=== PATIENT | female | born 1950 | race American Indian/Alaskan Native ===

== ENCOUNTER 2021-11-08 09:20 | Inpatient (IN) | payer MEDICARE ==
[2021-11-08] MEDS ORDERED: SODIUM CHLORIDE 0.9% 500 ML 500 ML IV ONE (09:24)
[2021-11-08] MEDS ORDERED: NITROGLYCERIN 2% OINT 1 GM TP NR (09:24)
[2021-11-08] MEDS ORDERED: ONDANSETRON 4 MG/2 ML INJ IV NR (09:26)
[2021-11-08] MEDS ORDERED: MORPHINE 4 MG/1 ML INJ IV NR (09:26)
--- NOTE | 2021-11-08 10:58 | XRay Report ---
CHEST 1 VIEW 11/08/2021 8:52 AM INDICATION / CLINICAL INFORMATION: Chest Pain. COMPARISON: None available. FINDINGS: SUPPORT DEVICES: Left dual-lead pacemaker with right leads. HEART / MEDIASTINUM: No significant abnormality. LUNGS / PLEURA: No significant pulmonary or pleural abnormality. No pneumothorax. ADDITIONAL FINDINGS: No significant additional findings. IMPRESSION: 1. No acute findings. Signer Name: Hai Son MD Signed: 11/08/2021 10:54 AM Workstation Name: [email or web address]
[2021-11-08 11:23] LABS: C-Reactive Protein 0.3 mg/dL (0.00-1.30)
[2021-11-08 11:24] LABS: Alanine Aminotransferase 11 units/L (7-56); Albumin 3.9 g/dL (3.9-5); BUN/Creatinine Ratio 19; Blood Urea Nitrogen 19 mg/dL (7-17); Hemolysis Index 2
[2021-11-08 11:28] LABS: Hematocrit 34.3 % (30.3-42.9); Hemoglobin 11.5 gm/dl (10.1-14.3); Mean Corpuscular HGB Conc 34 % (30-34); Mean Corpuscular Volume 94 fl (79-97); Platelet Count 233 K/mm3 (140-440); Red Blood Count 3.64 M/mm3 (3.65-5.03); Red Cell Distribution Width 14.4 % (13.2-15.2)
[2021-11-08 12:25] LABS: Platelet Estimate Consistent w Auto; RBC Morphology Normal; Total Cells Counted 100
[2021-11-08 13:48] LABS: Color,Urine Yellow (Yellow)
[2021-11-08 13:49] LABS: Hyaline Casts,Urine 1 /LPF; Mucus,Urine FEW /HPF
[2021-11-08 14:08] LABS: Amphetamine Screen,Urine Negative; Benzodiazepines Screen,Urine Negative; Cannabinoid Screen,Urine Negative; Cocaine Screen,Urine Negative; Methadone Screen,Urine Negative; Opiate Screen,Urine Negative
--- NOTE | 2021-11-08 14:21 | Emergency Department Report ---
ED Chest Pain HPI - General Chief Complaint: Chest Pain Stated Complaint: CHEST PAIN PUI?: No Time Seen by Provider: 11/08/21 09:24 Source: patient, EMS Mode of arrival: Stretcher Limitations: No Limitations - History of Present Illness Initial Comments: Pt presents with substernal CP that began this AM when she woke up -: hour(s) Onset: during rest Pain Location: substernal Pain Radiation: none Severity scale (0 -10): 7 Quality: heaviness Consistency: intermittent Improves With: nitroglycerin Worsens With: nothing Treatments Prior to Arrival: none - Related Data On Oral Contraceptives: No Allergies Allergy/AdvReac Type Severity Reaction Status Date / Time aspirin Allergy Unknown Verified 11/08/21 09:34 lisinopril Allergy Angioedema Verified 11/08/21 09:34 Heart Score - HEART Score History: Highly suspicious EKG: Non-specific Age: > 65 Risk factors: 1-2 risk factors Troponin: < normal limit HEART Score: 6 - EKG Read Time Time EKG Completed: 09:30 EKG Read Time: 09:30 - Critical Actions Critical Actions: 4-6 pts:12-16.6% risk of adverse cardiac event. Should be admitted ED Review of Systems ROS: Stated complaint: CHEST PAIN Other details as noted in HPI ED Past Medical Hx - Past Medical History Hx Diabetes: Yes (borderline) - Surgical History Hx Pacemaker: Yes - Social History Smoking Status: Never Smoker ED Physical Exam - General Limitations: No Limitations ED Course Vital Signs 11/08/21 11/08/21 11/08/21 09:21 09:25 09:31 Temperature 98.3 F Pulse Rate 60 Respiratory 18 16 24 Rate Blood Pressure 152/75 Blood Pressure 152/75 [Right] O2 Sat by Pulse 100 98 Oximetry 11/08/21 11/08/21 11/08/21 09:45 10:01 10:15 Temperature Pulse Rate 61 65 60 Respiratory 16 16 19 Rate Blood Pressure 144/87 144/87 137/77 Blood Pressure [Right] O2 Sat by Pulse 99 97 100 Oximetry 11/08/21 11/08/21 11/08/21 10:31 10:45 11:01 Temperature Pulse Rate 76 60 65 Respiratory 24 16 22 Rate Blood Pressure 137/77 147/74 147/74 Blood Pressure [Right] O2 Sat by Pulse 98 97 76 L Oximetry 11/08/21 11/08/2111/08/22 11:15 11:31 11:45 Temperature Pulse Rate 65 62 61 Respiratory 16 14 12 Rate Blood Pressure 136/77 136/77 128/86 Blood Pressure [Right] O2 Sat by Pulse 99 99 95 Oximetry 11/08/21 11/08/21 11/08/21 12:00 12:15 12:31 Temperature Pulse Rate 65 60 68 Respiratory 14 15 15 Rate Blood Pressure 136/77 121/85 128/86 Blood Pressure [Right] O2 Sat by Pulse 98 96 94 Oximetry 11/08/21 11/08/21 12:45 13:01 Temperature Pulse Rate 61 60 Respiratory 12 22 Rate Blood Pressure 115/82 115/82 Blood Pressure [Right] O2 Sat by Pulse 97 91 Oximetry ARRON score - Arron Score Age > 65: (1) Yes Aspirin use within the Past 7 Days: (0) No 3 or more CAD Risk Factors: (0) No 2 or more Angina events in past 24 hrs: (0) No Known CAD with more than 50% Stenosis: (0) No Elevated Cardiac Markers: (0) No ST Deviation Greater than 0.5mm: (0) No ARRON Score: 1 ED Medical Decision Making - Lab Data Result diagrams: 11/08/21 09:55 11/08/21 09:55 - EKG Data -: EKG Interpreted by Pr EKG shows normal: sinus rhythm - Radiology Data Radiology results: report reviewed, image reviewed - Medical Decision Making work up negatve pain resolved with nitro and morphine , Critical care attestation.: If time is entered above; I have spent that time in minutes in the direct care of this critically ill patient, excluding procedure time. ED Disposition Clinical Impression: Chest pain Disposition: ADMITTED INPATIENT Is pt being admited?: Yes Does the pt Need Aspirin: Yes Condition: Stable Instructions: Nonspecific Chest Pain, Adult Referrals: PRIMARY CARE,MD [Primary Care Provider] - 3-5 Days
--- NOTE | 2021-11-08 14:23 | History and Physical Report ---
History of Present Illness Chief complaint: My chest hurts History of present illness: 70 YO Female with Obesity, HTN, DM, Metabolic Syndrome, Cardiomyopathy S/P Pacemaker Placement presents to ED for evaluation. Patient reports "my chest hurts". Patient states that she experienced sudden onset of chest pain this mo rning shortly after awakening from sleep. Patient states that pain is 7/10, intermittent, substernal, crushing in nature, worsened with deep breathing, not worsened with exertion, not relieved with rest. Patient acknowledges decreased activity over the past 1 week. EMS was notified and upon arrival the patient was found to be in distress and subsequently transported to [facility] for further care and evaluation of the aforementioned symptoms. The patient was seen and evaluated emergency department. All lab and imaging studies reviewed. Patient found to have angina at rest as well as clinical symptoms consistent with diastolic CHF, and pleuritic chest pain. Patient also found to have elevated D-dimer. Patient admitted to telemetry and initiated on CHF protocol. Patient treated with initial dose of therapeutic anticoagulation. CTA chest ordered and pending. Cardiology team consulted. Patient denies fever, chills, productive cough, skin rash, recent contact, known exposure to COVID-19. No prior admission for review. All medication listed at time of admission has been reconciled. Advanced care planning conducted in ED. Past History Past Medical History: diabetes, hypertension, other (See HPI) Past Surgical History: Other (Pacemaker placement) Social history: single. denies: smoking, alcohol abuse, prescription drug abuse Family history: diabetes, hypertension Medications and Allergies Allergies Allergy/AdvReac Type Severity Reaction Status Date / Time aspirin Allergy Unknown Verified 11/08/21 09:34 lisinopril Allergy Angioedema Verified 11/08/21 09:34 Review of Systems Constitutional: no weight loss, no weight gain Ears, nose, mouth and throat: no ear discharge, no tinnitis, no decreased hearing, no nasal discharge Cardiovascular: decreased exercise tolerance, no chest pain Respiratory: pleurisy, no cough, no cough with sputum Gastrointestinal: no abdominal pain, no nausea, no constipation Genitourinary Female: no pelvic pain, no flank pain, no dysuria, no urinary frequency Rectal: no pain, no incontinence, no bleeding Musculoskeletal: no neck stiffness, no neck pain, no shooting arm pain, no arm numbness/tingling, no low back pain Integumentary: no rash, no pruritis, no redness, no sores Neurological: no head injury, no transient paralysis, no weakness, no tingling, no syncope, no tremors, no lack of coordination Psychiatric: no anxiety, no memory loss, no sleep disturbances, no hypersomnia, no change in libido, no suicidal ideation Endocrine: no cold intolerance, no polyphagia, no excessive thirst, no nocturia, no excessive sweating Hematologic/Lymphatic: no easy bruising Allergic/Immunologic: no urticaria, no allergic rhinitis, no wheezing Exam - Constitutional Vitals: Temp Pulse Resp BP Pulse Ox 98.3 F 60 22 115/82 91 11/08/21 09:21 11/08/21 13:01 11/08/21 13:01 11/08/21 13:01 11/08/21 13:01 General appearance: Present: mild distress, obese - EENT Eyes: Present: PERRL ENT: hearing intact, clear oral mucosa - Neck Neck: Present: supple, normal ROM - Respiratory Respiratory effort: normal Respiratory: bilateral: diminished - Cardiovascular Heart Sounds: Present: S1 & S2. Absent: rub, click - Extremities Extremities: pulses symmetrical, No edema Peripheral Pulses: within normal limits - Abdominal General gastrointestinal: Present: soft, non-tender, non-distended, normal bowel sounds Female genitourinary: Present: normal - Integumentary Integumentary: Present: clear, warm, dry - Musculoskeletal Musculoskeletal: gait normal, strength equal bilaterally - Psychiatric Psychiatric: appropriate mood/affect, intact judgment & insight - Neurologic Neurologic: CNII-XII intact, moves all extremities HEART Score - HEART Score EKG: Non-specific Age: > 65 Risk factors: 1-2 risk factors Troponin: Troponin T < 0.010 ng/mL (0.00-0.029) 11/08/21 13:16 Troponin: < normal limit Results - Labs CBC & Chem 7: 11/08/21 09:55 11/08/21 09:55 Labs: Abnormal lab results 11/08/21 11/08/21 Range/Units 09:55 09:55 WBC 4.3 L (4.5-11.0) K/mm3 RBC 3.64 L (3.65-5.03) M/mm3 Seg Neuts % (Manual) 37.0 L (40.0-70.0) % Lymphocytes % (Manual) 42.0 H (13.4-35.0) % Monocytes % (Manual) 8.0 H (0.0-7.3) % Basophils % (Manual) 2.0 H (0.0-1.8) % Seg Neutrophils # Man 1.6 L (1.8-7.7) K/mm3 BUN 19 H (7-17) mg/dL Assessment and Plan - Patient Problems (1) Angina at rest Current Visit: Yes Status: Acute Plan to address problem: ACS protocol: Serial cardiac enzymes, EKG, telemetry monitoring, morphine, supplemental oxygen, nitro, aspirin, cardiology team consulted. (2) Diastolic CHF Current Visit: Yes Status: Acute Qualifiers: Heart failure chronicity: acute Qualified Code(s): I50.31 - Acute diastolic (congestive) heart failure Plan to address problem: Strict I/O, monitor urine output every shift, daily, afterload reduction, blood pressure control, echocardiogram ordered and pending at time of admission. (3) Hypertension Current Visit: Yes Status: Acute Qualifiers: Hypertension type: primary hypertension Qualified Code(s): I10 - Essential (primary) hypertension Plan to address problem: Monitor blood pressure every shift, continue medical management. (4) Diabetes Current Visit: Yes Status: Acute Plan to address problem: Consistent carbohydrate diet, Accu-Chek, insulin protocol, hypoglycemia protocol (5) Metabolic syndrome Current Visit: Yes Status: Acute Plan to address problem: Risk factor reduction, low-cholesterol diet, hyperglycemic control. (6) Obesity (BMI 30.0-34.9) Current Visit: Yes Status: Acute Plan to address problem: Balanced diet, increase physical activity discharge (7) DVT prophylaxis Current Visit: Yes Status: Acute Plan to address problem: SCD to bilateral lower extremities while in bed (8) Advance care planning Current Visit: Yes Status: Acute Plan to address problem: Disease education conducted, care plan discussed, diagnoses discussed, prognosis discussed, patient is full code. Patient knowledges understanding and agreement care plan, +30 minutes. (9) Preventative health care Current Visit: Yes Status: Acute Plan to address problem: Patient counseled regarding risk factor reduction, home safety precautions, low- cholesterol diet, outpatient follow-up with primary care physician for all age and risk factor appropriate screening test.
[2021-11-08] MEDS ORDERED: NITROGLYCERIN 0.4 MG TAB SUBL SL PRN (14:25)
[2021-11-08] MEDS ORDERED: oxyCODONE /ACETAMINOPHEN 5-325MG TAB PO PRN (14:25)
[2021-11-08] MEDS ORDERED: ACETAMINOPHEN 325 MG TAB PO PRN (14:25)
[2021-11-08] MEDS ORDERED: MORPHINE 4 MG/1 ML INJ IV PRN (14:25)
[2021-11-08] MEDS ORDERED: ALBUTEROL 2.5 MG/3 ML NEBU IH PRN (14:25)
[2021-11-08] MEDS ORDERED: ONDANSETRON 4 MG/2 ML INJ IV PRN (14:25)
[2021-11-08 16:55] LABS: Free T4 (Free Thyroxine) 0.95 ng/dL (0.76-1.46)
[2021-11-08] MEDS: ENOXAPARIN 100 MG/1 ML INJ SUB-Q SCH (21:46)
[2021-11-08] MEDS: FAMOTIDINE 10 MG TAB PO SCH (21:47)
--- NOTE | 2021-11-09 04:18 | Cat Scan Report ---
CTA CHEST WITH IV CONTRAST INDICATION / CLINICAL INFORMATION: dypsnea. TECHNIQUE: Axial CT images were obtained through the chest after injection of 100 mL Omnipaque 350 IV contrast. 3 plane MIP and/or 3D reconstructions were produced. All CT scans at this location are performed usi CT dose reduction for ALARA by means of automated exposure control. COMPARISON: Chest radiograph 11/08/2021 FINDINGS: PULMONARY ARTERIES: No pulmonary emboli. THORACIC AORTA: No significant abnormality. HEART: No significant abnormality. CORONARY ARTERIES: No significant calcification. PLEURA: No pleural effusion. No pneumothorax. LYMPH NODES: No significant adenopathy. LUNGS: Probable mild interstitial pulmonary edema. The lungs are otherwise grossly clear. No pleural effusion or focal consolidation. ADDITIONAL FINDINGS: None. UPPER ABDOMEN: No acute findings. SKELETAL STRUCTURES: No significant acute osseous abnormality. IMPRESSION: 1. No CT evidence for pulmonary embolism. 2. Probable mild interstitial pulmonary edema. Signer Name: Carrol Denis MD Signed: 11/09/2021 4:13 AM Workstation Name: [id number]
[2021-11-09 06:39] LABS: Calcium 8.5 mg/dL (8.4-10.2)
--- NOTE | 2021-11-09 08:24 | Progress Note ---
Assessment and Plan Assessment and plan: 70 YO Female with Obesity, HTN, DM, Metabolic Syndrome, Cardiomyopathy S/P Pacemaker Placement presents to ED for evaluation of chest pain. The patient was admitted with diagnosis below: Chest pain Acute diastolic heart failure Hypertension Diabetes mellitus type 2 Obesity 11/09/2021. Patient may have very mild acute diastolic heart failure with CTA revealing mild interstitial pulmonary edema. However, chest x-ray and BNP negative. Await cardiology consultation and recommendations for ischemic evaluation. Patient reports having outpatient stress test approximately 1 month ago with [facility] does not know the results. Follow-up echocardiogram. Patient with elevated D-dimer but CTA was negative for PE. Patient currently normotensive. Continue Accu-Cheks and sliding scale insulin. History Interval history: No new issues overnight Hospitalist Physical - Constitutional Vitals: Temp Pulse Resp BP Pulse Ox 97.6 F 59 L 18 127/61 95 11/09/21 03:55 11/09/21 03:55 11/09/21 03:55 11/09/21 03:55 11/09/21 03:55 General appearance: Present: no acute distress, obese - EENT Eyes: Present: PERRL, EOM intact ENT: hearing intact, clear oral mucosa, dentition normal - Neck Neck: Present: supple, normal ROM - Respiratory Respiratory effort: normal Respiratory: bilateral: CTA - Cardiovascular Rhythm: regular Heart Sounds: Present: S1 & S2. Absent: gallop, rub - Extremities Extremities: no ischemia, No edema, Full ROM - Abdominal General gastrointestinal: soft, non-tender, non-distended, normal bowel sounds - Integumentary Integumentary: Present: clear, warm, dry - Neurologic Neurologic: CNII-XII intact, moves all extremities HEART Score - HEART Score EKG: Non-specific Age: > 65 Risk factors: 1-2 risk factors Troponin: Troponin T < 0.010 ng/mL (0.00-0.029) 11/08/21 19:48 Troponin: < normal limit - Critical Actions Critical Actions: 4-6 pts:12-16.6% risk of adverse cardiac event. Should be admitted Results - Labs CBC & Chem 7: 11/08/21 09:55 11/09/21 05:40 Labs: Laboratory Last Values WBC 4.3 K/mm3 (4.5-11.0) L 11/08/21 09:55 RBC 3.64 M/mm3 (3.65-5.03) L 11/08/21 09:55 Hgb 11.5 gm/dl (10.1-14.3) 11/08/21 09:55 Hct 34.3 % (30.3-42.9) 11/08/21 09:55 MCV 94 fl (79-97) 11/08/21 09:55 MCH 32 pg (28-32) 11/08/21 09:55 MCHC 34 % (30-34) 11/08/21 09:55 RDW 14.4 % (13.2-15.2) 11/08/21 09:55 Plt Count 233 K/mm3 (140-440) 11/08/21 09:55 Lymph % (Auto) Jewel Sawyer 11/08/21 09:55 Add Manual Diff Complete 11/08/21 09:55 Total Counted 100 11/08/21 09:55 Seg Neutrophils % Jewel Sawyer 11/08/21 09:55 Seg Neuts % (Manual) 37.0 % (40.0-70.0) L 11/08/21 09:55 Band Neutrophils % 0 % 11/08/21 09:55 Lymphocytes % (Manual) 42.0 % (13.4-35.0) H 11/08/21 09:55 Reactive Lymphs % (Man) 9.0 % 11/08/21 09:55 Monocytes % (Manual) 8.0 % (0.0-7.3) H 11/08/21 09:55 Eosinophils % (Manual) 2.0 % (0.0-4.3) 11/08/21 09:55 Basophils % (Manual) 2.0 % (0.0-1.8) H 11/08/21 09:55 Metamyelocytes % 0 % 11/08/21 09:55 Myelocytes % 0 % 11/08/21 09:55 Promyelocytes % 0 % 11/08/21 09:55 Blast Cells % 0 % 11/08/21 09:55 Nucleated RBC % Not Reportable 11/08/21 09:55 Seg Neutrophils # Man 1.6 K/mm3 (1.8-7.7) L 11/08/21 09:55 Band Neutrophils # 0.0 K/mm3 11/08/21 09:55 Lymphocytes # (Manual) 1.8 K/mm3 (1.2-5.4) 11/08/21 09:55 Abs React Lymphs (Man) 0.4 K/mm3 11/08/21 09:55 Monocytes # (Manual) 0.3 K/mm3 (0.0-0.8) 11/08/21 09:55 Eosinophils # (Manual) 0.1 K/mm3 (0.0-0.4) 11/08/21 09:55 Basophils # (Manual) 0.1 K/mm3 (0.0-0.1) 11/08/21 09:55 Metamyelocytes # 0.0 K/mm3 11/08/21 09:55 Myelocytes # 0.0 K/mm3 11/08/21 09:55 Promyelocytes # 0.0 K/mm3 11/08/21 09:55 Blast Cells # 0.0 K/mm3 11/08/21 09:55 WBC Morphology Not Reportable 11/08/21 09:55 WBC Morphology TNR 11/08/21 09:55 Hypersegmented Neuts Not Reportable 11/08/21 09:55 Hyposegmented Neuts Not Reportable 11/08/21 09:55 Hypogranular Neuts Not Reportable 11/08/21 09:55 Smudge Cells Not Reportable 11/08/21 09:55 Toxic Granulation Not Reportable 11/08/21 09:55 Toxic Vacuolation Not Reportable 11/08/21 09:55 Dohle Bodies Not Reportable 11/08/21 09:55 Pelger-Huet Anomaly Not Reportable 11/08/21 09:55 Andria Rods Not Reportable 11/08/21 09:55 Platelet Estimate Consistent w auto 11/08/21 09:55 Clumped Platelets Not Reportable 11/08/21 09:55 Plt Clumps, EDTA Not Reportable 11/08/21 09:55 Large Platelets Not Reportable 11/08/21 09:55 Giant Platelets Not Reportable 11/08/21 09:55 Platelet Satelliting Not Reportable 11/08/21 09:55 Plt Morphology Comment Not Reportable 11/08/21 09:55 RBC Morphology Normal 11/08/21 09:55 Dimorphic RBCs Not Reportable 11/08/21 09:55 Polychromasia Not Reportable 11/08/21 09:55 Hypochromasia Not Reportable 11/08/21 09:55 Poikilocytosis Not Reportable 11/08/21 09:55 Anisocytosis Not Reportable 11/08/21 09:55 Microcytosis Not Reportable 11/08/21 09:55 Macrocytosis Not Reportable 11/08/21 09:55 Spherocytes Not Reportable 11/08/21 09:55 Pappenheimer Bodies Not Reportable 11/08/21 09:55 Sickle Cells Not Reportable 11/08/21 09:55 Target Cells Not Reportable 11/08/21 09:55 Tear Drop Cells Not Reportable 11/08/21 09:55 Ovalocytes Not Reportable 11/08/21 09:55 Helmet Cells Not Reportable 11/08/21 09:55 Bashir-[place] Bodies Not Reportable 11/08/21 09:55 [place] Rings Not Reportable 11/08/21 09:55 [place] Cells Not Reportable 11/08/21 09:55 Bite Cells Not Reportable 11/08/21 09:55 Crenated Cell Not Reportable 11/08/21 09:55 Elliptocytes Not Reportable 11/08/21 09:55 Acanthocytes (Spur) Not Reportable 11/08/21 09:55 Rouleaux Not Reportable 11/08/21 09:55 Hemoglobin C Crystals Not Reportable 11/08/21 09:55 Schistocytes Not Reportable 11/08/21 09:55 Malaria parasites Not Reportable 11/08/21 09:55 Nabor Bodies Not Reportable 11/08/21 09:55 Hem Pathologist Commnt No 11/08/21 09:55 D-Dimer 2341.71 ng/mlDDU (0-234) H 11/08/21 14:59 Sodium 141 mmol/L (137-145) 11/09/21 05:40 Potassium 4.5 mmol/L (3.6-5.0) 11/09/21 05:40 Chloride 102.9 mmol/L (98-107) 11/09/21 05:40 Carbon Dioxide 27 mmol/L (22-30) 11/09/21 05:40 Anion Gap 16 mmol/L 11/09/21 05:40 BUN 18 mg/dL (7-17) H 11/09/21 05:40 Creatinine 1.1 mg/dL (0.6-1.2) 11/09/21 05:40 Estimated GFR 59 ml/min 11/09/21 05:40 BUN/Creatinine Ratio 16 % 11/09/21 05:40 Glucose 100 mg/dL (65-100) 11/09/21 05:40 Calcium 8.5 mg/dL (8.4-10.2) 11/09/21 05:40 Magnesium 2.30 mg/dL (1.7-2.3) 11/08/21 14:59 Total Bilirubin 0.30 mg/dL (0.1-1.2) 11/08/21 09:55 AST 19 units/L (5-40) 11/08/21 09:55 ALT 11 units/L (7-56) 11/08/21 09:55 Alkaline Phosphatase 90 units/L (35-129) 11/08/21 09:55 Total Creatine Kinase 101 units/L (30-135) 11/08/21 09:55 Troponin T < 0.010 ng/mL (0.00-0.029) 11/08/21 19:48 C-Reactive Protein 0.30 mg/dL (0.00-1.30) 11/08/21 09:55 NT-Pro-B Natriuret Pep 91.04 pg/mL (0-900) 11/08/21 09:55 Total Protein 7.2 g/dL (6.3-8.2) 11/08/21 09:55 Albumin 3.9 g/dL (3.9-5) 11/08/21 09:55 Albumin/Globulin Ratio 1.2 % 11/08/21 09:55 Lipase 45 units/L (13-60) 11/08/21 09:55 TSH 1.780 mlU/mL (0.270-4.200) 11/08/21 14:59 Free T4 0.95 ng/dL (0.76-1.46) 11/08/21 14:59 Urine Color Yellow (Yellow) 11/08/21 Unknown Urine Turbidity Slightly-cloudy (Clear) 11/08/21 Unknown Specific [place] (Man) 1.014 (1.003-1.030) 11/08/21 Unknown Ur Protein (Man) Negative mg/dL (Negative) 11/08/21 Unknown Ur Ketones (Man) Negative (Negative) 11/08/21 Unknown Ur Nitrite (Man) Negative (Negative) 11/08/21 Unknown Urine Bilirubin (Man) Negative (Negative) 11/08/21 Unknown Urine Ictotest Not Reportable 11/08/21 Unknown Leukocyte Esterase (Man) Negative (Negative) 11/08/21 Unknown Urine WBC (Auto) 1.0 /HPF (0.0-6.0) 11/08/21 Unknown Urine RBC (Auto) 1.0 /HPF (0.0-6.0) 11/08/21 Unknown U Epithel Cells (Auto) 2.0 /HPF (0-13.0) 11/08/21 Unknown Urine RBC (Manual) Negative (Negative) 11/08/21 Unknown Hyaline Casts 1 /LPF 11/08/21 Unknown Urine Mucus Few /HPF 11/08/21 Unknown Urine Opiates Screen Negative 11/08/21 13:42 Urine Methadone Screen Negative 11/08/21 13:42 Ur Barbiturates Screen Negative 11/08/21 13:42 Ur Phencyclidine Scrn Negative 11/08/21 13:42 Ur Amphetamines Screen Negative 11/08/21 13:42 U Benzodiazepines Scrn Negative 11/08/21 13:42 Urine Cocaine Screen Negative 11/08/21 13:42 U Marijuana (THC) Screen Negative 11/08/21 13:42 Drugs of Abuse Note Disclamer 11/08/21 13:42 Shell/IV: Voiding Method Toilet Active Medications - Current Medications Current Medications: Generic Name Dose Route Start Last Admin Trade Name Freq PRN Reason Stop Dose Admin Acetaminophen 650 mg 11/08/21 14:25 Acetaminophen 325 Mg Tab PO Q4H PRN Pain MILD(1-3)/Fever >100.5/FRANKS Albuterol 2.5 mg 11/08/21 14:25 Albuterol 2.5 Mg/3 Ml Nebu IH Q4H PRN Shortness Of Breath Enoxaparin Sodium 90 mg 11/08/21 10:00 11/08/21 21:46 Enoxaparin 100 Mg/1 Ml Inj 1 mg/kg (90 mg) 90 mg SUB-Q Administration Q12HR CATALINA Protocol Famotidine 10 mg 11/08/21 22:00 11/08/21 21:47 Famotidine 10 Mg Tab PO 10 mg BID CATALINA Administration Morphine Sulfate 2 mg 11/08/21 14:25 Morphine 4 Mg/1 Ml Inj IV Q14H PRN Pain , Severe (7-10) Nitroglycerin 0.4 mg 11/08/21 14:25 Nitroglycerin 0.4 Mg Tab Subl SL .Q5MIN PRN Chest Pain Ondansetron HCl 4 mg 11/08/21 14:25 Ondansetron 4 Mg/2 Ml Inj IV Q8H PRN Nausea And Vomiting Oxycodone/Acetaminophen 1 tab 11/08/21 14:25 Oxycodone /Acetaminophen 5-325mg Tab PO Q6H PRN Pain, Moderate (4-6) Sodium Chloride 10 ml 11/08/21 22:00 11/08/21 21:47 Sodium Chloride 0.9% 10 Ml Flush Syringe IV 10 ml BID CATALINA Administration Sodium Chloride 10 ml 11/08/21 14:25 Sodium Chloride 0.9% 10 Ml Flush Syringe IV PRN PRN LINE FLUSH
--- NOTE | 2021-11-09 09:03 | Event Note ---
Date: 11/09/21 Per IMS, pt reports an outpatient stress test performed by [facility] approximately 1 month ago. As such, will refer to their service for further cardiac mgmt.
[2021-11-09] MEDS: ENOXAPARIN 100 MG/1 ML INJ SUB-Q SCH ×3 (09:14→21:40)
[2021-11-09] MEDS: FAMOTIDINE 10 MG TAB PO SCH ×2 (09:22→21:40)
--- NOTE | 2021-11-09 10:06 | Consultation ---
History of Present Illness Consult date: 11/09/21 Requesting physician: LAN JACKSON Consult reason: chest pain, congestive heart failure History of present illness: Pt is a 70-year-old female with a hx of CHB s/p PPM, HTN, and DM2 who presented with complaints of chest pain. She describes the pain as substernal pressure "like an elephant on my chest." Non-radiating. Pain woke her up from sleep last night. Associated with SOB. Worse with deep inspiration. Relief noted with SL NTG upon arrival. Pt also reports progressively worsening SOB/RILEY over the past several months. She feels winded after walking about 30-50ft. She also reports recent orthopnea and PND making it difficult for her to sleep. Chest pain-free upon assessment this AM. Of note, pt reports having a stress test done as an outpatient by Dr. Alfaro with [facility]. She does not know the results. Previously unknown to our practice. Past History Past Medical History: arrhythmia (CHB), diabetes, hypertension. denies: atrial fib, CAD, DVT, pulmonary embolism, stroke Past Surgical History: Other (PPM). denies: valve replacement, CABG, PTCA Social history: . denies: smoking, alcohol abuse Family history: diabetes, hypertension Medications and Allergies Allergies Allergy/AdvReac Type Severity Reaction Status Date / Time aspirin Allergy Unknown Verified 11/08/21 09:34 lisinopril Allergy Angioedema Verified 11/08/21 09:34 Active Meds: Active Medications Acetaminophen (Acetaminophen 325 Mg Tab) 650 mg PO Q4H PRN PRN Reason: Pain MILD(1-3)/Fever >100.5/FRANKS Albuterol (Albuterol 2.5 Mg/3 Ml Nebu) 2.5 mg IH Q4H PRN PRN Reason: Shortness Of Breath Enoxaparin Sodium (Enoxaparin 100 Mg/1 Ml Inj) 90 mg 1 mg/kg (90 mg) SUB-Q Q12HR CATALINA; Protocol Last Admin: 11/09/21 09:22 Dose: 90 mg Famotidine (Famotidine 10 Mg Tab) 10 mg PO BID CATALINA Last Admin: 11/09/21 09:22 Dose: 10 mg Morphine Sulfate (Morphine 4 Mg/1 Ml Inj) 2 mg IV Q14H PRN PRN Reason: Pain , Severe (7-10) Nitroglycerin (Nitroglycerin 0.4 Mg Tab Subl) 0.4 mg SL .Q5MIN PRN PRN Reason: Chest Pain Ondansetron HCl (Ondansetron 4 Mg/2 Ml Inj) 4 mg IV Q8H PRN PRN Reason: Nausea And Vomiting Oxycodone/Acetaminophen (Oxycodone /Acetaminophen 5-325mg Tab) 1 tab PO Q6H PRN PRN Reason: Pain, Moderate (4-6) Sodium Chloride (Sodium Chloride 0.9% 10 Ml Flush Syringe) 10 ml IV BID CATALINA Last Admin: 11/09/21 09:23 Dose: 10 ml Sodium Chloride (Sodium Chloride 0.9% 10 Ml Flush Syringe) 10 ml IV PRN PRN PRN Reason: LINE FLUSH Review of Systems Constitutional: no fever, no chills Ears, nose, mouth and throat: no nasal congestion, no sore throat Cardiovascular: chest pain, orthopnea, edema (LLE), shortness of breath, dyspnea on exertion, no palpitations, no syncope, no lightheadedness Respiratory: shortness of breath, dyspnea on exertion, no cough Gastrointestinal: no abdominal pain, no nausea, no vomiting Genitourinary Female: urinary frequency (overactive bladder) Musculoskeletal: myalgias (LLE) Integumentary: no rash, no wounds Neurological: numbness (L foot), no tingling, no seizures, no syncope, no vertigo, no headaches Endocrine: no cold intolerance, no heat intolerance Hematologic/Lymphatic: no easy bruising, no easy bleeding Allergic/Immunologic: no anaphylaxis Physical Examination Vital Signs Temp Pulse Resp BP Pulse Ox 98.3 F 60 18 152/75 100 11/08/21 09:21 11/08/21 09:21 11/08/21 09:21 11/08/21 09:21 11/08/21 09:21 General appearance: no acute distress HEENT: Positive: EOMI, Normocephaly Neck: Negative: JVD/HJR Cardiac: Positive: Reg Rate and Rhythm, S1/S2 Lungs: Positive: Decreased Breath Sounds Neuro: Positive: Grossly Intact Abdomen: Positive: Soft. Negative: Tender Skin: Negative: Rash Musculoskeletal: Normal Range of Motion Extremities: Present: edema (mild LLE), warm Results 11/08/21 09:55 11/09/21 05:40 Cardiac Enzymes 11/08/21 Range/Units 09:55 AST 19 (5-40) units/L CBC 11/08/21 Range/Units 09:55 WBC 4.3 L (4.5-11.0) K/mm3 RBC 3.64 L (3.65-5.03) M/mm3 Hgb 11.5 (10.1-14.3) gm/dl Hct 34.3 (30.3-42.9) % Plt Count 233 (140-440) K/mm3 Comprehensive Metabolic Panel 11/08/21 11/09/21 Range/Units 09:55 05:40 Sodium 141 141 (137-145) mmol/L Potassium 4.0 4.5 (3.6-5.0) mmol/L Chloride 104.4 102.9 (98-107) mmol/L Carbon Dioxide 26 27 (22-30) mmol/L BUN 19 H 18 H (7-17) mg/dL Creatinine 1.0 1.1 (0.6-1.2) mg/dL Glucose 78 100 (65-100) mg/dL Calcium 9.0 8.5 (8.4-10.2) mg/dL AST 19 (5-40) units/L ALT 11 (7-56) units/L Alkaline Phosphatase 90 (35-129) units/L Total Protein 7.2 (6.3-8.2) g/dL Albumin 3.9 (3.9-5) g/dL - Imaging and Cardiology Echo: pending EKG: report reviewed, image reviewed - EKG Interpretation EKG: no acute changes EKG interpretations - Telemetry EKG Rhythm: Paced - EKG Sinus rhythms and dysrhythmias: sinus rhythm Supraventricular dysrhythmia: atrial premature complexe Assessment and Plan Assessment: Chest Pain Elevated D-dimer ?HFpEF H/o CHB s/p PPM (placed 05/2020 in [place]) HTN DM2 Obesity Plan: Tn neg x 3. ECG reveals no acute ischemic changes. AMI ruled out. Pt's is bringing her outpatient records today. Will review recent stress test results once available. Obtain LLE US to evaluate for DVT. CTA neg for PE but does reveal mild interstitial edema. BNP within normal limits. CXR reveals no acute findings. Clinically, pt's symptoms are consistent with CHF. Will give one time dose of IV Lasix 20mg. F/u BMP in AM. Await echo findings. Pt seen in conjunction with Dr. Beltran, who agrees with the assessment and plan of care. - Patient Problems (1) Chest pain Current Visit: Yes Status: Acute (2) Elevated d-dimer Current Visit: Yes Status: Acute
[2021-11-09] MEDS ORDERED: FUROSEMIDE 40 MG/4 ML INJ IV ONE ×2 (10:31)
[2021-11-10 06:24] LABS: Hematocrit 40.1 % (30.3-42.9); Hemoglobin 12.8 gm/dl (10.1-14.3); Mean Corpuscular HGB Conc 32 % (30-34); Mean Corpuscular Volume 96 fl (79-97); Platelet Count 272 K/mm3 (140-440); Red Blood Count 4.18 M/mm3 (3.65-5.03); Red Cell Distribution Width 14.3 % (13.2-15.2)
[2021-11-10 07:14] LABS: Basophils % (Manual) 0 % (0.0-1.8); Platelet Estimate Consistent w Auto; Total Cells Counted 100
[2021-11-10 07:34] LABS: Calcium 9.2 mg/dL (8.4-10.2)
--- NOTE | 2021-11-10 09:58 | Progress Note ---
Assessment and Plan Assessment and plan: 70 YO Female with a hx of CHB s/p PPM, Obesity, HTN, DM, Metabolic Syndrome and Cardiomyopathy presents to ED for evaluation of chest pain. The patient was admitted with diagnosis below: Chest pain Acute on chronic diastolic heart failure Hypertension Diabetes mellitus type 2 Obesity 11/09/2021. Patient may have very mild acute diastolic heart failure with CTA revealing mild interstitial pulmonary edema. However, chest x-ray and BNP negative. Await cardiology consultation and recommendations for ischemic evaluation. Patient reports having outpatient stress test approximately 1 month ago with [facility] does not know the results. Follow-up echocardiogram. P atient with elevated D-dimer but CTA was negative for PE. Patient currently normotensive. Continue Accu-Cheks and sliding scale insulin. 11/10/2021. Troponin negative x3. EKG revealed no acute ischemic changes. AMI ruled out per cardiology. CTA negative for PE but did reveal mild interstitial edema. Chest x-ray with no acute findings and BNP within normal limits. Patient received one-time dose of Lasix 20 mg IV. Echocardiogram revealed EF of 60% and mild diastolic dysfunction. Patient did have symptoms clinically of CHF which have now resolved. Anticipate discharge later today History Interval history: No new issues overnight Hospitalist Physical - Constitutional Vitals: Temp Pulse Resp BP Pulse Ox 97.6 F 60 18 128/73 96 11/10/21 07:41 11/10/21 07:41 11/10/21 07:41 11/10/21 07:41 11/10/21 07:41 General appearance: Present: no acute distress - EENT Eyes: Present: PERRL, EOM intact ENT: hearing intact, clear oral mucosa, dentition normal - Neck Neck: Present: supple, normal ROM - Respiratory Respiratory effort: normal Respiratory: bilateral: CTA - Cardiovascular Rhythm: regular Heart Sounds: Present: S1 & S2. Absent: gallop, rub - Extremities Extremities: no ischemia, No edema, Full ROM - Abdominal General gastrointestinal: soft, non-tender, non-distended, normal bowel sounds - Integumentary Integumentary: Present: clear, warm, dry - Neurologic Neurologic: CNII-XII intact, moves all extremities HEART Score - HEART Score EKG: Non-specific Age: > 65 Risk factors: 1-2 risk factors Troponin: Troponin T < 0.010 ng/mL (0.00-0.029) 09/17/22 19:48 Troponin: < normal limit - Critical Actions Critical Actions: 4-6 pts:12-16.6% risk of adverse cardiac event. Should be admitted Results - Labs CBC & Chem 7: 11/10/21 05:59 11/10/21 05:59 Labs: Laboratory Last Values WBC 4.4 K/mm3 (4.5-11.0) L 11/10/21 05:59 RBC 4.18 M/mm3 (3.65-5.03) 11/10/21 05:59 Hgb 12.8 gm/dl (10.1-14.3) 11/10/21 05:59 Hct 40.1 % (30.3-42.9) 11/10/21 05:59 MCV 96 fl (79-97) 11/10/21 05:59 MCH 31 pg (28-32) 11/10/21 05:59 MCHC 32 % (30-34) 11/10/21 05:59 RDW 14.3 % (13.2-15.2) 11/10/21 05:59 Plt Count 272 K/mm3 (140-440) 11/10/21 05:59 Lymph % (Auto) Occupational Therapist Assistant 11/08/21 09:55 Add Manual Diff Complete 11/10/21 05:59 Total Counted 100 11/10/21 05:59 Seg Neutrophils % Occupational Therapist Assistant 11/10/21 05:59 Seg Neuts % (Manual) 42.0 % (40.0-70.0) 11/10/21 05:59 Band Neutrophils % 0 % 11/10/21 05:59 Lymphocytes % (Manual) 44.0 % (13.4-35.0) H 11/10/21 05:59 Reactive Lymphs % (Man) 0 % 11/10/21 05:59 Monocytes % (Manual) 9.0 % (0.0-7.3) H 11/10/21 05:59 Eosinophils % (Manual) 5.0 % (0.0-4.3) H 11/10/21 05:59 Basophils % (Manual) 0 % (0.0-1.8) 11/10/21 05:59 Metamyelocytes % 0 % 11/10/21 05:59 Myelocytes % 0 % 11/10/21 05:59 Promyelocytes % 0 % 11/10/21 05:59 Blast Cells % 0 % 11/10/21 05:59 Nucleated RBC % Not Reportable 11/10/21 05:59 Seg Neutrophils # Man 1.8 K/mm3 (1.8-7.7) 11/10/21 05:59 Band Neutrophils # 0.0 K/mm3 11/10/21 05:59 Lymphocytes # (Manual) 1.9 K/mm3 (1.2-5.4) 11/10/21 05:59 Abs React Lymphs (Man) 0.0 K/mm3 11/10/21 05:59 Monocytes # (Manual) 0.4 K/mm3 (0.0-0.8) 11/10/21 05:59 Eosinophils # (Manual) 0.2 K/mm3 (0.0-0.4) 11/10/21 05:59 Basophils # (Manual) 0.0 K/mm3 (0.0-0.1) 11/10/21 05:59 Metamyelocytes # 0.0 K/mm3 11/10/21 05:59 Myelocytes # 0.0 K/mm3 11/10/21 05:59 Promyelocytes # 0.0 K/mm3 11/10/21 05:59 Blast Cells # 0.0 K/mm3 11/10/21 05:59 WBC Morphology Not Reportable 11/10/21 05:59 Hypersegmented Neuts Not Reportable 11/10/21 05:59 Hyposegmented Neuts Not Reportable 11/10/21 05:59 Hypogranular Neuts Not Reportable 11/10/21 05:59 Smudge Cells Not Reportable 11/10/21 05:59 Toxic Granulation Not Reportable 11/10/21 05:59 Toxic Vacuolation Not Reportable 11/10/21 05:59 Dohle Bodies Not Reportable 11/10/21 05:59 Pelger-Huet Anomaly Not Reportable 11/10/21 05:59 Andria Rods Not Reportable 11/10/21 05:59 Platelet Estimate Consistent w auto 11/10/21 05:59 Clumped Platelets Not Reportable 11/10/21 05:59 Plt Clumps, EDTA Not Reportable 11/10/21 05:59 Large Platelets Not Reportable 11/10/21 05:59 Giant Platelets Not Reportable 11/10/21 05:59 Platelet Satelliting Not Reportable 11/10/21 05:59 Plt Morphology Comment Not Reportable 11/10/21 05:59 RBC Morphology Not Reportable 11/10/21 05:59 Dimorphic RBCs Not Reportable 11/10/21 05:59 Polychromasia Not Reportable 11/10/21 05:59 Hypochromasia Not Reportable 11/10/21 05:59 Poikilocytosis Not Reportable 11/10/21 05:59 Anisocytosis Not Reportable 11/10/21 05:59 Microcytosis Not Reportable 11/10/21 05:59 Macrocytosis Not Reportable 11/10/21 05:59 Spherocytes Not Reportable 11/10/21 05:59 Pappenheimer Bodies Not Reportable 11/10/21 05:59 Sickle Cells Not Reportable 11/10/21 05:59 Target Cells Not Reportable 11/10/21 05:59 Tear Drop Cells Not Reportable 11/10/21 05:59 Ovalocytes Not Reportable 11/10/21 05:59 Helmet Cells Not Reportable 11/10/21 05:59 Bashir-Leith-Hatfield Bodies Not Reportable 11/10/21 05:59 [place] Rings Not Reportable 11/10/21 05:59 [place] Cells Not Reportable 11/10/21 05:59 Bite Cells Not Reportable 11/10/21 05:59 Crenated Cell Not Reportable 11/10/21 05:59 Elliptocytes Not Reportable 11/10/21 05:59 Acanthocytes (Spur) Not Reportable 11/10/21 05:59 Rouleaux Not Reportable 11/10/21 05:59 Hemoglobin C Crystals Not Reportable 11/10/21 05:59 Schistocytes Not Reportable 11/10/21 05:59 Malaria parasites Not Reportable 11/10/21 05:59 Nabor Bodies Not Reportable 11/10/21 05:59 Hem Pathologist Commnt No 11/10/21 05:59 D-Dimer 2341.71 ng/mlDDU (0-234) H 11/08/21 14:59 Sodium 141 mmol/L (137-145) 11/10/21 05:59 Potassium 3.8 mmol/L (3.6-5.0) 11/10/21 05:59 Chloride 99.4 mmol/L (98-107) 11/10/21 05:59 Carbon Dioxide 27 mmol/L (22-30) 11/10/21 05:59 Anion Gap 18 mmol/L 11/10/21 05:59 BUN 21 mg/dL (7-17) H 11/10/21 05:59 Creatinine 1.2 mg/dL (0.6-1.2) 11/10/21 05:59 Estimated GFR 53 ml/min 11/10/21 05:59 BUN/Creatinine Ratio 18 % 11/10/21 05:59 Glucose 107 mg/dL (65-100) H 11/10/21 05:59 Calcium 9.2 mg/dL (8.4-10.2) 11/10/21 05:59 Magnesium 2.30 mg/dL (1.7-2.3) 11/08/21 14:59 Total Bilirubin 0.30 mg/dL (0.1-1.2) 11/08/21 09:55 AST 19 units/L (5-40) 11/08/21 09:55 ALT 11 units/L (7-56) 11/08/21 09:55 Alkaline Phosphatase 90 units/L (35-129) 11/08/21 09:55 Total Creatine Kinase 101 units/L (30-135) 11/08/21 09:55 Troponin T < 0.010 ng/mL (0.00-0.029) 11/08/21 19:48 C-Reactive Protein 0.30 mg/dL (0.00-1.30) 11/08/21 09:55 NT-Pro-B Natriuret Pep 91.04 pg/mL (0-900) 11/08/21 09:55 Total Protein 7.2 g/dL (6.3-8.2) 11/08/21 09:55 Albumin 3.9 g/dL (3.9-5) 11/08/21 09:55 Albumin/Globulin Ratio 1.2 % 11/08/21 09:55 Lipase 45 units/L (13-60) 11/08/21 09:55 TSH 1.780 mlU/mL (0.270-4.200) 11/08/21 14:59 Free T4 0.95 ng/dL (0.76-1.46) 11/08/21 14:59 Urine Color Yellow (Yellow) 11/08/21 Unknown Urine Turbidity Slightly-cloudy (Clear) 11/08/21 Unknown Specific [place] (Man) 1.014 (1.003-1.030) 11/08/21 Unknown Ur Protein (Man) Negative mg/dL (Negative) 11/08/21 Unknown Ur Ketones (Man) Negative (Negative) 11/08/21 Unknown Ur Nitrite (Man) Negative (Negative) 11/08/21 Unknown Urine Bilirubin (Man) Negative (Negative) 11/08/21 Unknown Urine Ictotest Not Reportable 11/08/21 Unknown Leukocyte Esterase (Man) Negative (Negative) 11/08/21 Unknown Urine WBC (Auto) 1.0 /HPF (0.0-6.0) 11/08/21 Unknown Urine RBC (Auto) 1.0 /HPF (0.0-6.0) 11/08/21 Unknown U Epithel Cells (Auto) 2.0 /HPF (0-13.0) 11/08/21 Unknown Urine RBC (Manual) Negative (Negative) 11/08/21 Unknown Hyaline Casts 1 /LPF 11/08/21 Unknown Urine Mucus Few /HPF 11/08/21 Unknown Urine Opiates Screen Negative 11/08/21 13:42 Urine Methadone Screen Negative 11/08/21 13:42 Ur Barbiturates Screen Negative 11/08/21 13:42 Ur Phencyclidine Scrn Negative 11/08/21 13:42 Ur Amphetamines Screen Negative 11/08/21 13:42 U Benzodiazepines Scrn Negative 11/08/21 13:42 Urine Cocaine Screen Negative 11/08/21 13:42 U Marijuana (THC) Screen Negative 11/08/21 13:42 Drugs of Abuse Note Disclamer 11/08/21 13:42 Shell/IV: Voiding Method Toilet Active Medications - Current Medications Current Medications: Generic Name Dose Route Start Last Admin Trade Name Freq PRN Reason Stop Dose Admin Acetaminophen 650 mg 11/08/21 14:25 Acetaminophen 325 Mg Tab PO Q4H PRN Pain MILD(1-3)/Fever >100.5/FRANKS Albuterol 2.5 mg 11/08/21 14:25 Albuterol 2.5 Mg/3 Ml Nebu IH Q4H PRN Shortness Of Breath Enoxaparin Sodium 90 mg 11/08/21 10:00 11/09/21 21:40 Enoxaparin 100 Mg/1 Ml Inj 1 mg/kg (90 mg) 90 mg SUB-Q Administration Q12HR [facility] Protocol Famotidine 10 mg 11/08/21 22:00 11/09/21 21:40 Famotidine 10 Mg Tab PO 10 mg BID CATALINA Administration Morphine Sulfate 2 mg 11/08/21 14:25 Morphine 4 Mg/1 Ml Inj IV Q14H PRN Pain , Severe (7-10) Nitroglycerin 0.4 mg 11/08/21 14:25 Nitroglycerin 0.4 Mg Tab Subl SL .Q5MIN PRN Chest Pain Ondansetron HCl 4 mg 11/08/21 14:25 Ondansetron 4 Mg/2 Ml Inj IV Q8H PRN Nausea And Vomiting Oxycodone/Acetaminophen 1 tab 11/08/21 14:25 Oxycodone /Acetaminophen 5-325mg Tab PO Q6H PRN Pain, Moderate (4-6) Sodium Chloride 10 ml 11/08/21 22:00 11/09/21 21:40 Sodium Chloride 0.9% 10 Ml Flush Syringe IV 10 ml BID CATALINA Administration Sodium Chloride 10 ml 11/08/21 14:25 Sodium Chloride 0.9% 10 Ml Flush Syringe IV PRN PRN LINE FLUSH
[2021-11-10] MEDS: ENOXAPARIN 100 MG/1 ML INJ SUB-Q SCH ×2 (11:02→22:44)
[2021-11-10] MEDS: FAMOTIDINE 10 MG TAB PO SCH ×2 (11:02→22:44)
--- NOTE | 2021-11-10 11:06 | Progress Note ---
Assessment and Plan - Patient Problems (1) Chest pain Current Visit: Yes Status: Acute Qualifiers: Chest pain type: chest pain on breathing Qualified Code(s): R07.1 - Chest pain on breathing; R07.81 - Pleurodynia Plan to address problem: Patient had a normal echocardiogram without any wall motion abnormalities. She had a nuclear stress done at our office on 10/09/2021 which was negative for ischemia. She has some tenderness to palpation second and third left rib No major calcium noted in the coronary distribution on her CT done for PE rule out. Her proBNP was very low making diastolic heart failure less likely. No further work-up needed from cardiac standpoint. She may need an Doppler ultrasound of lower extremities to rule out DVTs given her elevated D-dimer and negative CT PE. Subjective Date of service: 11/10/21 Principal diagnosis: Chest pain Interval history: Patient was admitted with an episode of chest pain that got worse with breathing. She received morphine in the emergency room which resolved her chest pain. No recurrence of symptoms. She had a CT PE protocol which was negative for PE Objective Vital Signs Temp Pulse Resp BP Pulse Ox 11/10/21 07:41 97.6 F 60 18 128/73 96 11/10/21 03:47 97.9 F 60 16 117/70 96 11/09/21 22:58 97.5 F L 60 16 124/77 98 11/09/21 22:00 60 98 11/09/21 19:25 97.6 F 61 16 128/75 97 11/09/21 18:00 20 95 11/09/21 16:27 65 95 11/09/21 12:59 97.7 F 62 16 128/71 98 - Physical Examination General: No Apparent Distress HEENT: Positive: EOMI, Normocephaly Neck: Positive: neck supple. Negative: JVD/HJR Cardiac: Positive: Reg Rate and Rhythm, S1/S2 Lungs: Positive: clear to auscultation Neuro: Positive: Grossly Intact Abdomen: Positive: Soft. Negative: Tender Skin: Negative: Rash Musculoskeletal: Normal Range of Motion Extremities: Present: edema (mild LLE), warm - Labs and Meds CBC 11/10/21 Range/Units 05:59 WBC 4.4 L (4.5-11.0) K/mm3 RBC 4.18 (3.65-5.03) M/mm3 Hgb 12.8 (10.1-14.3) gm/dl Hct 40.1 (30.3-42.9) % Plt Count 272 (140-440) K/mm3 Comprehensive Metabolic Panel 11/10/21 Range/Units 05:59 Sodium 141 (137-145) mmol/L Potassium 3.8 (3.6-5.0) mmol/L Chloride 99.4 (98-107) mmol/L Carbon Dioxide 27 (22-30) mmol/L BUN 21 H (7-17) mg/dL Creatinine 1.2 (0.6-1.2) mg/dL Glucose 107 H (65-100) mg/dL Calcium 9.2 (8.4-10.2) mg/dL - Imaging and Cardiology EKG: report reviewed, image reviewed Echo: pending - EKG Sinus rhythms and dysrhythmias: sinus rhythm
--- NOTE | 2021-11-10 16:33 | Vascular Lab Report ---
DUPLEX DOPPLER LOWER EXTREMITY VEINS, BILATERAL INDICATION / CLINICAL INFORMATION: r/o DVT. History of diabetes, htn, chf, metabolic syndrome. TECHNIQUE: Duplex doppler imaging was performed through the veins of both lower extremities using manuel ous compression and other maneuvers. COMPARISON: None available. FINDINGS: RIGHT COMMON FEMORAL VEIN: Negative. RIGHT FEMORAL VEIN: Negative. RIGHT POPLITEAL VEIN: Negative. RIGHT CALF VEINS: Negative. LEFT COMMON FEMORAL VEIN: Negative. LEFT FEMORAL VEIN: Negative. LEFT POPLITEAL VEIN: Negative. LEFT CALF VEINS: Negative. ADDITIONAL FINDINGS: None. IMPRESSION: 1. No sonographic evidence for DVT in either lower extremity. Scribed by: Leesa Rowley RDMS, MILI, ARMANDO Scribed: 11/10/2021 3:25 PM I have reviewed the images, agree with this report, and edited this report as needed. Signer Name: Julio Martines MD Signed: 11/10/2021 4:28 PM Workstation Name: [email or web address]
[2021-11-11 06:08] VITALS: BP 93/66
--- NOTE | 2021-11-11 09:29 | Electrocardiograph Report ---
[facility] Test Date: 2021-11-09 Test Time: 07:32:54 Pat Name: PEPE MICHELLE Department: Room: A485 1 Gender: F Human Service Technician: LATOYA : 1950 Requested By: MORIAH MIX Order Number: [id number] Reading MD: Neo Pleitez Measurements Intervals [place] Rate: 65 P: 65 OR: 188 QRS: -32 QRSD: 92 T: 43 QT: 438 QTc: 454 Interpretive Statements Atrial-paced complexes Left axis deviation No previous ECG available for comparison Electronically Signed On 11-11-2021 9:28:37 EDT by Neo Pleitez
--- NOTE | 2021-11-11 12:12 | Discharge Summary ---
Providers - Providers Date of Admission: 11/08/21 16:00 Date of discharge: 11/11/21 Attending physician: CAITY JACOB 11/08/21 Consult to Cardiac Rehabilitation [CONS] Routine Reason For Exam: Phase 1 11/08/21 14:25 Consult to Cardiology [CONS] Routine Consulting Provider: JANETTE GODFREY Reason For Exam: chest pain Primary care physician: PRINTED CIRCUIT BOARD PANELS PLATER Hospitalization Condition: Stable Hospital course: 70 YO Female with a hx of CHB s/p PPM, Obesity, HTN, DM, Metabolic Syndrome and Cardiomyopathy presents to ED for evaluation of chest pain. The patient was admitted with diagnosis below: Chest pain/resolved GERD ;noncardiac chest pain probably due to GERD Acute on chronic diastolic heart failure Complete heart block status post PPM Hypertension Diabetes mellitus type 2 Elevated D-dimers; negative for PE, negative for DVT Obesity; BMI 31.2 11/09/2021. Patient may have very mild acute diastolic heart failure with CTA revealing mild interstitial pulmonary edema. However, chest x-ray and BNP negative. Await cardiology consultation and recommendations for ischemic evaluation. Patient reports having outpatient stress test approximately 1 month ago with [facility] does not know the results. Follow-up echocardiogram. Patient with elevated D-dimer but CTA was negative for PE. Patient currently normotensive. Continue Accu-Cheks and sliding scale insulin. 11/10/2021. Troponin negative x3. EKG revealed no acute ischemic changes. AMI ruled out per cardiology. CTA negative for PE but did reveal mild interstitial edema. Chest x-ray with no acute findings and BNP within normal limits. Patient received one-time dose of Lasix 20 mg IV. Echocardiogram revealed EF of 60% and mild diastolic dysfunction. Patient did have symptoms clinically of CHF which have now resolved. Anticipate discharge later today Disposition: 01 HOME / SELF CARE / HOMELESS Final Discharge Diagnosis (Prints w/discharge instructions): Chest pain/resolved. GERD noncardiac chest pain probably GERD. Acute on chronic diastolic congestive heart failure. Complete heart block status post permanent pacemaker. Hypertension. Type 2 diabetes mellitus. Elevated D-dimers; negative PE, negative DVT. Obesity BMI 31.2 Time spent for discharge: 35 min Exam - Constitutional Vitals: Temp Pulse Resp BP Pulse Ox 97.8 F 65 20 93/66 99 11/11/21 06:07 11/11/21 06:07 11/11/21 06:07 11/11/21 06:07 11/11/21 06:07 Plan Activity: no restrictions Diet: other (Cardiac diet) Additional Instructions: If you have worsening symptoms contact MD or go to the nearest emergency room as needed. Advised to follow primary care physician in 1 week. Advised to follow your contingents supervisor per schedule. Advised to comply with medications, diet, follow-up visits with your physicians Follow up with: PRIMARY MD ARLETTE [Primary Care Provider] - 3-5 Days JANETTE GODFREY MD [Staff Physician] - 14 Days Prescriptions: Famotidine [Pepcid] 10 mg PO BID #60 tablet
--- NOTE | 2021-11-12 13:58 | Electrocardiograph Report ---
[facility] Test Date: 2021-11-08 Test Time: 09:30:09 Pat Name: PEPE MICHELLE Department: Room: A485 Gender: F [employer] Shop Supervisor: MK : 1950 Requested By: ANGEL CANDELARIA Order Number: [id number] Reading MD: Yudy Duran Measurements Intervals [place] Rate: 61 P: 0 LA: 216 QRS: -12 QRSD: 94 T: 55 QT: 449 QTc: 454 Interpretive Statements Sinus rhythm Occasional ventricular ectopy Borderline prolonged LA interval No previous ECG available for comparison Electronically Signed On 11-12-2021 13:57:59 EDT by Yudy Duran
--- NOTE | 2021-11-12 14:11 | Electrocardiograph Report ---
[facility] Test Date: 2021-11-09 Test Time: 10:44:24 Pat Name: PEPE MICHELLE Department: Room: A485 1 Gender: F Gm Mobile: LATOYA : 1950 Requested By: MORIAH MIX Order Number: [id number] Reading MD: Yudy Duran Measurements Intervals [place] Rate: 60 P: 90 [place]: 158 QRS: -35 QRSD: 100 T: 52 QT: 432 QTc: 432 Interpretive Statements Atrial-paced complexes Left axis deviation Compared to ECG 11/09/2021 07:32:54 No significant changes Electronically Signed On 11-12-2021 14:10:46 EDT by Yudy Duran
== END 2021-11-11 14:20 | disposition home or self-care (01) | DRG 391 ==
LOC: ED 09:20 → 4A 16:00
PROVIDERS: ADMIT Internal Medicine; ATTEND Internal Medicine
DX: K21.9 Gastro-esophageal reflux disease without esophagitis (principal); I50.33 Acute on chronic diastolic (congestive) heart failure; I42.9 Cardiomyopathy, unspecified; I11.0 Hypertensive heart disease with heart failure; E66.9 Obesity, unspecified; E88.81 Metabolic syndrome and other insulin resistance; R07.89 Other chest pain; Z68.31 Body mass index [BMI] 31.0-31.9, adult; Z83.3 Family history of diabetes mellitus; Z82.49 Family history of ischemic heart disease and other diseases of the circulatory system; Z88.8 Allergy status to other drugs, medicaments and biological substances; Z88.6 Allergy status to analgesic agent; Z91.013 Allergy to seafood; Z95.0 Presence of cardiac pacemaker
CPT/HCPCS: 36415; 71045; 71275; 80048; 80053; 80307; 81001; 82550; 83690; 83735; 83880; 84439; 84443; 84484; 85007; 85025; 85379; 86140; 93005; 93306; 93970; 96374; 96375; 99285; G0378; C8929; J1650; J1940; J2270; J2405; J7040; Q9967